=== PATIENT | male | born 1960 | race Caucasian/White ===

== ENCOUNTER 2025-07-04 05:11 | Emergency (ER) | payer BC ==
[2025-07-04] MEDS ORDERED: Aspirin Chewable 81 MG TAB ONE (05:32)
[2025-07-04 05:45] LABS: #Basophils 0.0 thou/uL (0.0-0.2); #Eosinophils 0.1 thou/uL (0.0-0.7); #Lymphocytes 1.5 thou/uL (1.20-3.40); #Monocytes 0.4 thou/uL (0.11-0.59); #Neutrophils 1.9 thou/uL (1.40-6.50); %Basophils 0.8 % (0.0-1.0); %Eosinophils 2.1 % (0.0-10.0); %Lymphocytes 38.8 % (21.0-51.0); %Monocytes 9.4 % (0.0-10.0); %Neutrophils 48.9 % (42.0-75.0); Hematocrit 42.1 % (42.0-52.0); Hemoglobin 14.3 g/dL (14.0-18.0); Mean Corpuscular Hemoglobin 29.6 pg (27.0-31.0); Mean Corpuscular Volume 87.5 fl (78.0-98.0); Platelet Count 104 10x3/uL (130-400); Red Blood Cell (RBC) Count 4.82 mill/uL (4.70-6.10); White Blood Cell (WBC) Count 4.0 10x3/uL (4.8-10.8)
[2025-07-04 05:55] LABS: ALT (SGPT) 29 U/L (Less than 45); AST (SGOT) 29 U/L (11-34); Albumin 4.0 g/dL (3.1-4.5); Alkaline Phosphatase 36 U/L (40-110); Anion Gap 15 mmol/L (10-20); BUN (Urea Nitrogen) 19 mg/dL (8.4-25.7); Bilirubin, Total 0.3 mg/dL (0.3-1.2); Calc. Creatinine Clearance 0 mL/min (70-130); Calcium 8.3 mg/dL (7.8-10.44); Carbon Dioxide 20 mmol/L (23-31); Chloride 108 mmol/L (98-107); Globulin 2.4 g/dL (2.4-3.5); Glucose 144 mg/dL (80-115); Potassium 3.8 mmol/L (3.5-5.1); Sodium 139 mmol/L (136-145)
[2025-07-04] MEDS ORDERED: Losartan 50 MG TAB ONE (05:58)
[2025-07-04 06:01] LABS: Troponin I 0.212 ng/mL (< 0.028)
[2025-07-04] MEDS ORDERED: Enoxaparin 100 MG (1 mL) SYRINGE ONE (07:29)
[2025-07-04 07:57] LABS: Troponin I 0.347 ng/mL (< 0.028)
== END 2025-07-04 09:39 | disposition short-term general hospital (02) ==
LOC: NAV ERS 05:11
DX: M25.512 Pain in left shoulder (principal); I10 Essential (primary) hypertension; E78.5 Hyperlipidemia, unspecified
CPT/HCPCS: 71046; 80053; 83880; 84484; 85025; 85379; 93005; 96372; J1650